=== PATIENT | male | born 1950 | race Caucasian/White ===

== ENCOUNTER 2020-03-19 08:37 | Day surgery (SDC) | payer OTHER ==
[2020-03-15 10:12] VITALS: BMI 31.9
[2020-03-19] MEDS ORDERED: PROPOFOL 20 ML ONE ×3 (09:40)
[2020-03-19 11:06] VITALS: TEMP 98.7
[2020-03-19 13:33] VITALS: BP 108/65; PULSE 67
== END 2020-03-19 11:30 | disposition home or self-care (01) ==
LOC: FASU-ENDO 08:37
PROVIDERS: ATTEND Internal Medicine Gastroenterology
PROC: 0DJD8ZZ Inspection of Lower Intestinal Tract, Via Natural or Artificial Opening Endoscopic (ICD-10-PCS; principal; 2020-03-19 10:29)
DX: K57.30 Diverticulosis of large intestine without perforation or abscess without bleeding (principal); R10.9 Unspecified abdominal pain; K64.1 Second degree hemorrhoids

== ENCOUNTER 2021-02-01 10:25 | Day surgery (SDC) | payer OTHER ==
[2021-01-31 12:53] VITALS: BMI 34.3
[2021-02-01 12:16] VITALS: TEMP 97.1
[2021-02-01 12:29] VITALS: BP 105/67; PULSE 53
== END 2021-02-01 12:38 | disposition home or self-care (01) ==
LOC: FASU-ENDO 10:25
PROVIDERS: ATTEND Internal Medicine Gastroenterology
PROC: 0DB78ZX Excision of Stomach, Pylorus, Via Natural or Artificial Opening Endoscopic, Diagnostic (ICD-10-PCS; 2021-02-01)
PROC: 0DB48ZX Excision of Esophagogastric Junction, Via Natural or Artificial Opening Endoscopic, Diagnostic (ICD-10-PCS; 2021-02-01)
PROC: 0DB98ZX Excision of Duodenum, Via Natural or Artificial Opening Endoscopic, Diagnostic (ICD-10-PCS; principal; 2021-02-01 11:51)
DX: K29.50 Unspecified chronic gastritis without bleeding (principal); K21.00 Gastro-esophageal reflux disease with esophagitis, without bleeding; K44.9 Diaphragmatic hernia without obstruction or gangrene; K31.89 Other diseases of stomach and duodenum; K92.1 Melena; R10.84 Generalized abdominal pain
CPT/HCPCS: 88305-TC; 88342-TC